=== PATIENT | female | born 1990 | race Caucasian/White ===

== ENCOUNTER 2023-08-24 13:52 | Emergency (ER) | payer OTHER, SELFPAY ==
--- NOTE | 2023-08-24 14:20 | ED.GENADULT ---
HPI - General Adult General Stated complaint: eye pressure,dry throat Time Seen by Provider: 08/24/23 14:25 Source: patient, RN notes reviewed and old records reviewed Mode of arrival: ambulatory Limitations: no limitations History of Present Illness HPI narrative: 33-year-old female presents to [facility] with complaints of sinus drainage, sinus pressure, this left-sided sinus pain, headache this started 7 days ago. Patient tried [id number] medications with no relief MD complaint: sinus pain Onset (ago): week(s) (1) Related Data Home Medications Medication Instructions Recorded Confirmed dextroamphetamine-amphetamine 10 08/24/23 mg tablet norgestimate 0.25 mg-ethinyl tablet 08/24/23 estradiol 35 mcg tablet (Estarylla) Allergies Allergy/AdvReac Type Severity Reaction Status Date / Time Penicillins Allergy Unknown Verified 08/24/23 14:36 Review of Systems Constitutional: Constitutional: Reports as per HPI and Reports headache(s) Eyes: Eyes: Reports no additional eye complaints ENT: Reports as per HPI, Reports nasal discharge, Reports sinus pain and Reports sinus pressure Cardiovascular: Cardiovascular: Reports no additional cardiovascular complaints Respiratory: Respiratory: Reports no additional respiratory complaints Neurologic: Reports system reviewed and no additional complaints, except as documented PMFSH Comments At the time of my signature, I reviewed and agree with the nursing past medical, surgical, social, and family history. There is no relevant family history pertinent to the patient complaint. Exam Const: General: cooperative, healthy appearing, no acute distress and well nourished Nutritional Appearance: well nourished Orientation/consciousness: patient oriented x3 Limitations: no limitations HENMT: Head: normal to inspection and normocephalic Ears: external ears normal, TM's normal bilaterally, mastoids normal and Abnormal EAC present Face/Nose/Sinus: Normal external nose present, No nasal polyps present, Abnormal mucous membranes and turbinates present boggy and erythematous, Nasal discharge present and Facial tenderness on exam of face and sinuses Face and sinus: normal facial exam, sinus tenderness frontal and Facial tenderness on exam of face and sinuses on the left Mouth: Yes Normal oral and palatal mucosa present, Yes oropharynx normal and Yes moist mucous membranes Throat: posterior oropharynx normal, tonsils normal, uvula midline and no uvular edema Eyes: General: appearance normal, both eyes and all related structures Sclera: sclerae normal Pupils: Equal, round and reactive pupils present Resp: Effort & Inspection: normal respiratory effort, able to speak in complete sentences, no audible wheezes, no cough, no respiratory distress and no retractions Auscultation: clear to auscultation bilaterally, no crackles, no rales, no rhonchi and no wheezes Cardio: Rate: regular rate Rhythm: regular rhythm Skin: General skin exam: normal color and no rashes or lesions noted Neuro: General: patient oriented x3 Cranial nerves: Yes Equal, round and reactive pupils present Psych: Appearance: grossly normal Course Course Emergency Course: Some parts of this dictation were generated by voice recognition software and may contain typographical and/or grammatical inaccuracies. Level of Care: Express Care Visit Vital Signs Vital signs: Reviewed Medical Decision Making MDM Narrative Medical decision making narrative: patient with complaints left-sided sinus tenderness, sinus drainage and headache for 1 week. Patient taking gauz-hni-tsiennu medications with no relief patient with sinus tenderness and turbinates erythematous and swollen. Will treat for sinusitis. Patient resting without signs or symptoms of acute distress, nontoxic appearing, vital signs stable. Patient appropriate for discharge home and outpatient treatment with instructions on close monitoring, cl
[2023-08-24 14:21] VITALS: BP 118/68; PULSE 98; RESP 16; TEMP 36.7; O2SAT 100
== END 2023-08-24 14:41 | disposition home or self-care (01) ==
PROVIDERS: Emergency Provider Registered Nurse
DX: J01.90 Acute sinusitis, unspecified (principal)
CPT/HCPCS: 99213; G0463

== ENCOUNTER 2025-06-06 13:10 | Emergency (ER) | payer OTHER, SELFPAY ==
--- OUTSIDE RECORDS SUMMARY | 2017-01-14 12:55 | XMS_ITS | Continuity of Care Document ---
Author Organization [facility] Address [address] [place] [address] Phone Care Team Providers Care Coke Burner Name Role Phone Rebecca Navarrete Unavailable Unavailable Allergies, Adverse Reactions, Alerts Substance Reaction Status Criticality Penicillins Anaphylaxis Active No Information Medications Medication Instructions Dosage Effective Dates (start - stop) Status Comments Adderall XR 10 mg capsule,extended release take 1 capsule by oral route every day in the morning upon awakening 10 MG - Active Procedures Procedure Date Tordal Ketorolac - Per 15mg THER/PROPH/DIAG INJ, SC/IM Tordal Ketorolac - Per 15mg OFFICE/OUTPATIENT VISIT, [facility] Advance Directives Directive Yes / No Effective Date File Name No Information Encounters Encounter Description Practice Location Reason(s) For Visit Diagnoses Date Provider Providers Copied on Encounter OFFICE/OUTPAT IENT VISIT, NEW [facility], [facility], [place], [id number], [place] tel:[phone] [facility] ([place]) (chief complaint) HeadacheAllergic rhinitis, unspecified [address]one Fernandez. [address] [place] [address], [address], . tel:[phone] Referring Provider: Robert Gil, [address] [place], [address] . tel:[phone] Family History Family Member Type Diagnosis Age At Onset No Information Payers Payer name Insurance type Covered alliance party ID Authoriza lynnon(s) [employer] Benefits [id number] Social History Type Description Quantity Date Captured Comments Alcohol Use Details beer 2 drinks weekly Caffeine Use Details No Tobacco Use Status No Information Smoking Status Never smoker Non-Smoking Tobacco Use Details : No Details Available : No Details Available Sex Female Vital Signs Date / Time: Height Weight BMI Pulse Rate Blood Pressure Temperature Respiratory Rate Body Surface Area Head Circumference Head Circ. Percentile Wt./Ezequiel. Percentile BMI percentile Pulse Ox Inhaled Ox 7:01 PM 65.00 in 65.862 kg (145.20 lbs) 24.1 6 kg/m eter (2) 90 /min 116/64 mm[Hg] 98.20 F 16 /min 98 % 21 % Chief Complaint And Reason For Visit From encounter dated '01/14/2017 17:55'. Headache ([place]) (chief complaint). Description: Onset: 5 Days. The severity of the problem is moderate. Pain scale: 8/10. The problem has not changed. The symptoms are recurring. Locations affected include bilateral frontal. Headache timing includes no pattern. Symptoms are not associated with menses, recent head trauma, recent MVA and stress. Aggravating factors include bright lights. Symptoms arenot aggravated by allergies, caffeine, exercise, head position, certain foods and noise. Symptoms are not relieved by analgesics, bath, darkness, decongestants, heat, ice, massage, OTC meds and prescription meds. Pertinent negatives include blurred vision, diplopia, dizziness, fever, hemianopsia left, hemianopsia right, loss of consciousness, memory loss, nausea, personality changes, phonophobia,photophobia, neck stiffness, vision loss left, vision loss right, visual aura, vertigo or vomiting. Reason For Referral Reason For Referral No Information History Of Present Illness Encounter Date Complaint History Of Prese nt Illness Headache ([place]) Onset: 5 Days. T he severity of the problem is moderate. Pain scale: 8/10. The problem has not changed. The symptoms are recurring. Locations affected include bilateral frontal. Headache timing includes no pattern. Symptoms are not associated with menses, recent head trauma, recent MVA and stress. Aggravating factors include bright lights. Symptoms are not aggravated by allergies, caffeine, exercise, head position, certain foods and noise. Symptoms are not relieved by analgesics, bath, darkness, decongestants, heat, ice, massage, OTC meds and prescription meds. Pertinent negatives include blurred vision, diplopia, dizziness, fever, hemianopsia left, hemianopsia right, loss of consciousness, memory loss, nausea, personality changes, phonophobia, photophobia, neck stiffness, vision loss left, vision loss right, visual aura, vertigo or vomiting. Functional Status Date Functional Assessmen t Pain Score 8/10 Instructions Date Instruction Additional Infor mation Patient c/o headache suspect d/t allergic rhinitis. Patient encouraged to take non-sedating antihistamine. Patient given 60mg toradol IM in clinic. She can continue to take ibuprophen OR naproxen in 6 hours. Encouraged her to maintain clear fluid intake. Patient can rtc if symptoms do not improve. Related to Allergic rhinitis, unspecified Patient c/o headache suspect d/t allergic rhinitis. Patient encouraged to take non-sedating antihistamine. Patient given 60mg toradol IM in clinic. She can continue to take ibuprophen OR naproxen in 6 hours. Encouraged her to maintain clear fluid intake. Patient can rtc if symptoms do not improve. Related to Headache Assessments Type Assessment Date assessment Headache assessment Allergic rhinitis, unspecified M Mental Status Date Cognitive Assessment Orientation - [place] ed to time, place, person, situation. Patient Care Teams Name Effective Dates (start - stop) Status Members No Information
--- OUTSIDE RECORDS SUMMARY | 2017-01-14 12:55 | XMS_ITS | Continuity of Care Document ---
Author Organization [facility] Address [address] [place] [address] Phone Care Team Providers Care Public Relations Professional Name Role Phone Rebecca Navarrete Unavailable Unavailable [...] Tordal Ketorolac - Per 15mg OFFICE/OUTPATIENT VISIT, [facility] Advance Directives Directive Yes / No Effective Date File Name No Information Encounters Encounter Description Practice Location Reason(s) For Visit Diagnoses Date Provider Providers Copied on Encounter OFFICE/OUTPAT IENT VISIT, NEW [facility], [facility], [place], [id number], [place] tel:[phone] [facility] At [facility] ([place]) (chief complaint) HeadacheAllergic rhinitis, unspecified [address] Jone Fernandez. [address] [place] [address], [address], . tel:[phone] Referring Provider: Robert Gil, [address] [place], [address] . tel:[phone] Family History Family Member Type Diagnosis Age At Onset No Information Payers Payer name Insurance type Covered democrat ID Authoriza lynnon(s) [employer] Benefits [id number] Social History Type Description Quantity Date Captured [...] Mental Status Date Cognitive Assessment Orientation - [place] ed to time, place, person, situation. Patient Care Teams Name Effective Dates (start - stop) Status Members No Information
--- NOTE | 2025-06-06 13:12 | ED_ITS ---
HPI - URI/Sore Throat General Chief Complaint: Upper Respiratory Infection Stated Complaint: Sinus Infection Time Seen by Provider: 06/06/25 13:11 Source: patient Mode of arrival: ambulatory Limitations: no limitations History of Present Illness HPI Narrative: Ana María is a 35-year-old female patient presenting to the clinic today with complaints of possible sinus infection x4 days. She reports symptoms started on Tuesday with some nasal congestion, ear congestion, cough, and sore throat. Has felt some chills at night time. Has not checked her temperature. Has been taking Sudafed and NyQuil for her symptoms. Related Data Home Medications ?Medication ?Instructions ?Recorded ?Confirmed ?Last Taken ?Type dextroamphetamine-amphetamine 10 08/24/23 Unknown Hi story mg tablet norgestimate 0.25 mg-ethinyl tablet 08/24/23 Unknown History estradiol 0.035 mg tablet (Estarylla) Allergies Allergy/AdvReac Type Severity Reaction Status Date / Time Penicillins Allergy Unknown Verified 06/06/25 13:29 Review of Systems Review of Systems: Pertinent positives per HPI. Patient denies any rash, headache, visual changes, dizziness, shortness of breath, chest pain, palpitations, nausea, vomiting, diarrhea, constipation, abdominal pain, or any urinary issues. PMFSH Comments At the time of my signature, I reviewed and agree with the nursing past medical, surgical, social, and family history. There is no relevant family history pertinent to the patient complaint. Exam Narrative: General: Well-developed, well nourished, in no apparent distress Head: Normocephalic, atraumatic Eyes: Pupils equally round and reactive to light bilaterally, EOM intact, sclera and conjunctive clear, no discharge, lids normal Ears: TMs intact and congested, ear canals clear, no drainage, grossly hearing normal. Nose: Nares patent, clear nasal discharge, mild inflammation, no sinus tenderness. Mouth: Oral pharynx mildly red without lesions or masses, good dentition, MMM. Neck: Supple, trachea midline, no enlargement of anterior or posterior cervical nodes, no thyroid masses or goiter palpable. Cardio: Regular rate and rhythm, s1 and s2 normal, no murmur appreciated. Resp: Clear to auscultation bilaterally, no rhonchi, rales, wheezing or rubs Course Course Emergency Course: Portions of this record may have been created with voice recognition software. Level of Care: Express Care Visit Vital Signs Vital signs: Vital Signs Temperature 36.2 C L 06/06/25 13:22 Pulse Rate 100 06/06/25 13:22 Respiratory Rate 18 06/06/25 13:22 Blood Pressure 122/73 06/06/25 13:22 Pulse Oximetry 99 06/06/25 13:22 Oxygen Delivery Room Air 06/06/25 13:22 Temperature 36.2 C L 06/06/25 13:22 Pulse Rate 100 06/06/25 13:22 Respiratory Rate 18 06/06/25 13:22 Blood Pressure 122/73 06/06/25 13:22 Pulse Oximetry 99 06/06/25 13:22 Oxygen Delivery Room Air 06/06/25 13:22 Vital signs reviewed MDM - URI/Sore Throat MDM Narrative Medical decision making narrative: At the time of visit patient is resting comfortably on the exam table. Patient appears to be nontoxic. Complaints of possible sinus infection x4 days. She reports symptoms started on Tuesday with some nasal congestion, ear congestion, cough, and sore throat. Has felt some chills at night time. Has not checked her temperature. Has been taking Sudafed and NyQuil for her symptoms. On exam patient has clear nasal drainage, bilateral TM congestion, oral pharynx mildly red with postnasal drip, lung sounds are clear, and heart rates regular rate rhythm. COVID, flu, and strep test were ordered. Labs: COVID, flu, and strep testing performed. All testing was negative. We will send strep for culture. Plan: I suspect patient has URI/pharyngitis/viral syndrome. Work note was given. Supportive measures were discussed with the patient and they voiced understanding discharge instructions and agrees to treatment plan. Return precautions reviewed Differential Diagnosis Differential diagnosis: Likely upper respiratory infection, otitis media, sinusitis, viral infection, bronchitis, influenza, pharyngitis and other (COVID) Lab Data Labs: Lab Results 06/06/25 06/06/25 Range/Units 13:39 13:46 POC Influenza A Ag Negative (Negative) POC Influenza B Ag Negative (Negative) POC SARS CoV-2 Ag Negative (Negative) POC Grp A Strep Screen Negative (Negative) Discharge Plan Discharge Clinical Impression: Viral infection Upper respiratory infection Qualifiers: URI type: unspecified URI Qualified Code(s): J06.9 - Acute upper respiratory infection, unspecified Pharyngitis Qualifiers: Pharyngitis/tonsillitis etiology: unspecified etiology Qualified Code(s): J02.9 - Acute pharyngitis, unspecified Patient Disposition: Home Condition: Stable Instructions: Antibiotic Form, Pharyngitis (ED), Viral Syndrome (ED), Cold Symptoms (ED) Additional Instructions: COVID, flu, and strep test were all negative in the clinic today. We will send strep for culture if this comes back positive we will contact you in place you on antibiotics at that time. Increase fluids and stay well hydrated May take Tylenol or motrin as directed on bottle for pain/fever May use Flonase 1 spray in each nare daily May take OTC antihistamines such as Zyrtec or Claritin daily as directed on bottle May apply Vicks vapor rub to chest to open sinuses Sinus rinses for congestion Cepacol spray, cough drops, throat lozenges, warm tea with honey/lemon, gargle salt water to soothe throat BRAT diet for diarrhea Clear liquids x 24 hours then advance as tolerated for nausea/vomiting Go to the ED if you develop a worsening in your condition- high fever not controlled by Tylenol or Motrin, dehydration, weakness, lethargy, shortness of breath, or chest pain. Follow up with your PCP in 3-5 days if symptoms persist. Patient Language: Barb[place] Prescriptions: No Action norgestimate-ethinyl estradiol [Estarylla] 0.25-35 mg-mcg tablet dextroamphetamine-amphetamine 10 mg tablet Follow-up/Referrals: UNKNOWN,DOCTOR [Non-Staff] Stand Alone Forms: Work/School Release IP Time of Disposition: 13:54 Quality NIHSS Nursing Documentation ED NIHSS nursing documentation: reviewed/agree
[2025-06-06 13:22] VITALS: BP 122/73; PULSE 100; RESP 18; TEMP 36.2; O2SAT 99
[2025-06-06 13:42] LABS: EDSTREPNEGPOS1 Negative (Negative)
[2025-06-06 13:51] LABS: EDCOVIDSCREEN Negative (Negative); EDINFLUASCREEN Negative (Negative); EDINFLUBSCREEN Negative (Negative)
--- OUTSIDE RECORDS SUMMARY | 2025-06-06 15:59 | XMS_ITS | Patient Health Record ---
Author Organization [facility] Address [address] [facility] [address] [place] [address] Care Team Providers Care Awning Assembler Name Role Phone Bert Crawford MD Primary Care Provider Coreen Coronel Unavailable [phone] Reason For Referral No Information Medications Medication SIG (Take, Route, Frequency, Duration) Notes Start Date End Date Status Ondansetron 4 MG take 1 tablet (4 mg) and place on top of the tongue where it will dissolve, then swallow by oral route 4 times per day prn Oral 4 07/16/2022 Active Adderall 10 MG take 1 tablet (10 mg) by oral route once daily before breakfast Oral 1 Active nasal spray for allergies - prn - *Reorder from [employer] for eRx and Interaction Alerts* Active Plan Of Treatment No Information Insurance Providers Payer Name Payer Address Payer Phone Subscriber Number Group Number Insured Name Patient Relationship to Insured Coverage Start Date Coverage End Date [place] [address] [place] [address] [id number] Ana María Hastings Self - patient is the insured Medical (General) History Surgical History Surgery Date(Month/Year) None; 2022-03-26
--- OUTSIDE RECORDS SUMMARY | 2025-06-06 15:59 | XMS_ITS | Clinical Summary ---
Author Organization [facility] Address [address] [place] [address] Care Team Providers Care Apartment Locator Name Role Phone Tanika Zepeda MD Primary Care Provider Allergies Active Allergy Reactions Criticality Noted Date Comments Penicillins Unknown,Rash High 10/16/2020 Medications dextroamphetamin e-amphetamine (ADDERALL) 10 mg tablet Take 1 tablet (10 mg total) by mouth daily Active Estarylla 0.25-35 mg-mcg per tablet Take 1 tablet by mouth daily 3 Active cyclobenzaprine (FLEXERIL) 5 mg tablet Take by mouth nightly as needed 3 Active clobetasoL (TEMOVATE) 0.05 % external solution APPLY TOPICALLY TO THE SCALP TWICE DAILY IN THE MORNING AND IN THE EVENING 3 Active loratadine (CLARITIN) 10 mg tablet Take 1 tablet (10 mg total) by mouth daily Active adalimumab-adaz (Hyrimoz,CF,) 40 mg/0.4 mL syringeIndicatio ns:Ankylosing spondylitis, unspecified site of spine (HCC) Inject 40 mg under the skin every 14 (fourteen) days 4 mL 3 5 Active celecoxib (CeleBREX) 200 mg capsuleIndicatio ns:Ankylosing Spondylitis Take 1 capsule (200 mg total) by mouth 2 (two) times a day 60 capsule 2 5 Active Cosentyx Pen pen injector INJECT 1 PEN UNDER THE SKIN EVERY 4 WEEKS 3 mL 5 Active Active Problems Problem Noted Date Diagnosed Date Ankylosing spondylitis of lumbosacral region Ankylosing spondylitis of [id number]-[id number] region 11/26/2020 Assessment & Plan (11/26/2020 8:59 AM CDT): She is with stiffness off the Enbrel. I did give her some samples to day to use every other week as the insurance issues are worked out No labs today Personal history of monoclonal drug therapy 11/10 Assessment & Plan (11/26/2020 9:00 AM CDT): She is aware that her insurance is an issue in affording biologic medications. Will have the office work on this [employer]term[employer] continuous churn (current) use of n on-steroidal anti-inflammatories (nsaid) 11/26/2020 Assessment & Plan (11/26/2020 9:00 AM CDT): Tolerating the celebrex well and will continue on this daily Encounters Date Type Department Care Team Description 04/09/2025 1:20 PM CDT Office Visit [facility] Medicine Rheumatology [address] [facility] [address] [place] [id number] Tali Jay MD Ankylosing spondylitis of multiple sites in spine (HCC) (Primary Dx); High risk medication use from Last 3 Months Surgical History Surgery Date Site/Laterality Comments WISDOM TOOTH EXTRACTION Medical History Medical History Date Comments Anemia Psoriasis Adhd Social History Tobacco Use Types Packs/Day Years Used Date Smoking Tobacco: Never Tobacco Cessation:Counseling Given: Not Answered Alcohol Use Standard Drinks/Week Comments Yes 1 (1 standard drink = 0.6 oz pur e alcohol) AUDIT-C Answer Date Recorded Q1: How often do you have a drink containing alcohol? Monthly or less 04/09/2025 Q2: How many drinks containi ng alcohol do you have on a typical day when you are drinking? Patient does not drink Frequency of Binge Drinking Not on file 03/13 Comments Unknown Sex and Gender Information Value Date Recorded Sex Assigned at Not on file Legal Sex Female 11:43 AM CDT Gender Identity Not on file Sexual Orientation Not on file Obstetrics History Last Filed Vital Signs Vital Sign Reading Time Taken Comments Blood Pressure 128/85 04/09/2025 1:20 PM CDT Pulse 99 04/09/2025 1:20 PM CDT Temperature 36.7 C (98.1 F) 04/09/2025 1:20 PM CDT Respiratory Rate - - Oxygen Saturation 98% 04/09/2025 1:20 PM CDT Inhaled Oxygen Concentration - - Weight 80.5 kg (177 lb 6.4 oz) 04/09/2025 1:20 P M CDT Height 162.6 cm (5' 4) 04/09/2025 1:20 PM CDT Body Mass Index 30.45 04/09/2025 1:20 PM CDT Plan of Treatment Health Maintenance Due Date Last Done Comments Cervical Cancer Screening 1992 Depression Screening 1992 Varicella Vaccines (1 of 2 - 13+ 2-dose series) 2005 Hepatitis B Screening 2010 Regular Well Visit/Exam 18-64 2010 Covid-19 Vaccine (2 - Modern a risk series) 10/21/2021 09/23/2021, 12/01/2020 DTaP/Tdap/Td Vaccine (3 - Td or Tdap) 03/12/2025 03/12/2015, 2014 Influenza Vaccine (#1) 2025 HPV Vaccines Completed 11/20/2018, 07/27/2018, 05/05/2018 Hepatitis C Screening Completed 12/04/2024 , 05/31/2023 Pneumococcal vaccine <65 Aged Out No longer eligible based on patient's age to complete this topic Procedures Procedure Name Priority Date/Time Associated Diagnosis Comments HEPATITIS C ANTIBODY Routine 12/04/2024 2:15 PM CDT High risk medication use from Last 3 Months or Most Recently Relevant to Health Maintenance Results * Hepatitis C antibody Blood (12/04/2024 2:15 PM CDT) Hep C Ab Nonreactive Nonreactive Comment: Interpretive Data Nonreactive: Antibodies to HCV not detected. Does NOT exclude the possibility of recent exposure to HCV. Equivocal: Equivocal for HCV antibodies. Supplemental molecular testing will be automatically performed to determine infection status in accordance with current CDC screening recommendations. Reactive: Positive for HCV antibodies. This may represent current or past HCV infection. Supplemental molecular testing will be automatically performed to determine current infection status in accordance with current CDC screening recommendations. Interpretive data was last revised on 2019. Testing performed by: [facility], [facility] [facility], [place]., [address] Blood 12/04/2024 2:15 PM CDT 12/04/2024 6:04 PM CDT us Tali Jay MD LAB MICROBIOLOGY - GENERAL ORDERABLES Final Result [facility] [address] [facility]. Department [place] [address] from Last 3 Months or Most Recently Relevant to Health Maintenance Insurance [employer] [facility] Care Teams Apartment Locator Relationship Specialty Start Date End Date Tanika Zepeda MD [address] [facility] [address] [place] [address] PCP - General Family Medicine 05/31/23
== END 2025-06-06 14:01 | disposition home or self-care (01) ==
PROVIDERS: Emergency Provider Nurse Practitioner Family
DX: B34.9 Viral infection, unspecified (principal); J06.9 Acute upper respiratory infection, unspecified; J02.9 Acute pharyngitis, unspecified; Z20.822 Contact with and (suspected) exposure to COVID-19; F90.9 Attention-deficit hyperactivity disorder, unspecified type
CPT/HCPCS: 87081; 87426; 87804; 87880; 99213; G0463